=== PATIENT | male | born 1990 | race Two or more races ===

== ENCOUNTER 2023-07-24 06:55 | Day surgery (SDC) | payer OTHER ==
[2023-07-24] MEDS ORDERED: LACTATED RINGERS 1,000 ML IV ONE ×2 (07:10→08:49)
--- NOTE | 2023-07-24 07:51 | ANESTHESIA ---
Pre-Anesthesia VS, & Labs - Diagnosis desires sterilization - Procedure Vasectomy Vital Signs: Temp Pulse Resp BP Pulse Ox O2 Flow Rate 36.4 C L 95 17 131/83 H 97 07/24/23 07:11 07/24/23 07:11 07/24/23 07:11 07/24/23 07:11 07/24/23 07:11 Height: 5 ft 8 in Weight (kg): 78.6 kg Body Mass Index: 26.3 BMI Classification: Overweight - NPO >8 hours Home Medications and Allergies Home Medications: Ambulatory Orders No Known Home Medications 07/21/23 No Known Home Medications 07/21/23 Allergies/Adverse Reactions: Allergies Allergy/AdvReac Type Severity Reaction Status Date / Time No Known Drug Allergies Allergy Verified 07/21/23 12:04 Anes History & Medical History - Anesthetic History Anesthesia Complications: reports: No previous complications - Medical History Cardiovascular: reports: None Pulmonary: reports: None Gastrointestinal: reports: None Urinary: reports: None Musculoskeletal: reports: None Endocrine/Autoimmune: reports: None Skin: reports: None History of Cancer?: No Exam General: Alert, Oriented x3 Dental: WNL Mouth Opening: Greater than 4 Fingerbreadths Neck Mobility: Normal Mallampati classification: II Thyromental Distance: greater than 6 cm Respiratory: Lungs clear Cardiovascular: Regular rate Plan Anesthesia Type: MAC, Total IV Consent for Procedure(s) Verified and Reviewed: Yes Code Status: Attempt Resuscitation ASA classification: 1-Healthy patient Is this case an emergency?: No
[2023-07-24] MEDS ORDERED: MIDAZOLAM 2 MG/2 ML VIAL ONE (08:14)
[2023-07-24] MEDS ORDERED: fentaNYL 100 MCG/2 ML VIAL ONE (08:14)
[2023-07-24] MEDS ORDERED: PROPOFOL 500 MG/50 ML 500 MG/50 ML VIAL ONE (08:15)
[2023-07-24] MEDS ORDERED: LIDOCAINE-MPF 1% 30 ML VIAL ONE (08:21)
[2023-07-24] MEDS ORDERED: BACITRACIN ZINC OINT 1 PACKET TOP ONE (08:21)
[2023-07-24] MEDS ORDERED: GLYCOPYRROLATE 1 MG/5 ML VIAL ONE (08:25)
[2023-07-24] MEDS ORDERED: LIDOCAINE 1% 50 ML MDV SUBQ ONE ×2 (08:30)
--- NOTE | 2023-07-24 08:54 | OPERATIVE REPORT ---
Operative Report - General Procedure Date: 07/24/23 Planned Procedure: Bilateral Vasectomy Pre-Op Diagnosis: elective sterilization Procedure Performed: Bilateral Vasectomy Post Op Diagnosis: elective sterilization - Procedure Note Primary Surgeon: Evelio Anesthesia Provider: ANKIT Carlisle Anesthesia Technique: MAC Findings: Normal vasectomy Complications: None - Other Other Information/Narrative: After informed consent was obtained the patient was brought to the OR and laid in the supine position. The patient was anesthetized per anesthesia protocols and prepped and draped in the usual sterile fashion A formal timeout was performed reconfirming the patient and procedure. Using 1% lidocaine as local a skin wheal was delivered to the right scrotal wall. The vas deferens was isolated. Using a sharp mosquito a window was made into the scrotal wall. A vasectomy clamp was used to grab the vas deferens. This was then gently from its sheath. A small portion of the vas was then resected with cautery. The ends were cauterizedm, the ends were suture-ligated with 3-0 chromic suture. The ends were then dropped back into place after a fascial interposition stitch was placed with 3-0 chromic suture. There was ex cellent hemostasis. The incision site was closed with 3-0 chromic suture. An identical procedure was performed on the left side for the left vas deferens. Band-Aids were placed. All surgical counts were correct. The patient tolerated the procedure well was brought to PACU without further incident.
--- NOTE | 2023-07-24 08:55 | Discharge Plan ---
Discharge Plan Problem Reviewed?: Yes Disposition: Home, Self Care Diet: Regular Activity Restrictions: Additional Comments (as per discharge orders) Instruction Topics: Vasectomy No Scalpel No Smoking: If you smoke, Please STOP! Call for help.
[2023-07-24 09:32] VITALS: BP 115/68; O2SAT 99
--- NOTE | 2023-07-24 12:13 | ANESTHESIA POST OP EVALUATION ---
Anesthesia Post Eval - Post Anesthesia Eval Vitals: Last Vital Signs Temp 36.2 C L 07/24/23 09:15 Pulse 86 07/24/23 09:15 Resp 18 07/24/23 09:15 BP 115/68 07/24/23 09:15 Pulse Ox 99 07/24/23 09:15 O2 Flow Rate CV Function Including HR & BP: Stable Pain Control: Satisfactory Nausea & Vomiting: Negative Mental Status: Baseline Respiratory Status: Airway Patent Hydration Status: Satisfactory Anesthesia Complications: None
== END 2023-07-24 06:56 | disposition home or self-care (01) ==
LOC: OR 06:55
PROVIDERS: ATTEND Urology
DX: Z30.2 Encounter for sterilization (principal)